=== PATIENT | female | born 1965 | race Native Hawaiian/Other Pacific Islander ===

== ENCOUNTER 2016-11-24 18:08 | Emergency (ER) | payer OTHER ==
[~2016-11-24] VITALS: Ht 175.3 cm; Wt 42.6 kg
[2016-11-24] MEDS ORDERED: MELOXICAM15 MG PO (19:24)
[2016-11-24] MEDS ORDERED: TRAM50TA PO (19:24)
[2016-11-24] MEDS ORDERED: MEGESTROL AC40 MG PO (19:25)
[2016-11-24] MEDS ORDERED: CYCL10TA35 PO (19:25)
[2016-11-24] MEDS ORDERED: CITALOPRAM HYDR10 MG PO (19:26)
[2016-11-24] MEDS ORDERED: CLON0.5T36 PO (19:26)
[2016-11-24] MEDS ORDERED: ALPR0.2566 PO (19:27)
[2016-11-24] MEDS ORDERED: ACET-655 PO (19:28)
== END 2016-11-24 21:46 | disposition home or self-care (01) ==
LOC: ED 18:08
PROC: 2W3DX1Z Immobilization of Left Lower Arm using Splint (ICD-10-PCS; principal; 2016-11-24)
DX: S63.502A Unspecified sprain of left wrist, initial encounter (principal); W19.XXXA Unspecified fall, initial encounter; Y92.098 Other place in other non-institutional residence as the place of occurrence of the external cause
CPT/HCPCS: 99283; L3908

== ENCOUNTER 2018-02-07 14:00 | Outpatient (CLI) | payer OTHER ==
[~2018-02-07 14:00] MED LIST: ACET-655 PO; ALPR0.2566 PO; CITALOPRAM HYDR10 MG PO; CLON0.5T36 PO; CYCL10TA35 PO; MEGESTROL AC40 MG PO; MELOXICAM15 MG PO; TRAM50TA PO
== END 2018-02-07 19:42 | disposition home or self-care (01) ==
LOC: RAD 14:00
DX: N95.0 Postmenopausal bleeding (principal)

== ENCOUNTER 2018-02-13 14:38 | Outpatient (CLI) | payer OTHER | END 2018-02-13 22:11 | disposition home or self-care (01) | LOC: MAMMO 14:38 | DX: Z12.31 Encounter for screening mammogram for malignant neoplasm of breast (principal) ==

== ENCOUNTER 2018-02-21 08:16 | Outpatient (CLI) | payer OTHER | END 2018-02-21 19:03 | disposition home or self-care (01) | LOC: US 08:16 | DX: N95.0 Postmenopausal bleeding (principal) ==

== ENCOUNTER 2018-03-27 08:28 | Emergency (ER) | payer OTHER ==
[~2018-03-27] VITALS: Ht 167.6 cm; Wt 44.0 kg
[2018-03-27 08:37] VITALS: TEMP 98.2
[2018-03-27 09:40] VITALS: BP 148/82
== END 2018-03-27 09:45 | disposition home or self-care (01) ==
LOC: ED 08:28
DX: M85.841 Other specified disorders of bone density and structure, right hand (principal)
CPT/HCPCS: 99283

== ENCOUNTER 2019-05-01 08:50 | Outpatient (CLI) | payer OTHER | END 2019-05-01 19:48 | disposition home or self-care (01) | LOC: MAMMO 08:50 | DX: Z12.31 Encounter for screening mammogram for malignant neoplasm of breast (principal) ==